=== PATIENT | female | born 1965 ===

== ENCOUNTER 2020-07-31 12:52 | Outpatient (REF) | payer SELFPAY ==
[2020-07-31 08:25] LABS: Hematocrit 28.8 % (37-47); Hemoglobin 8.3 g/dl (12.0-16.0); Mean Corpuscular HGB Conc 28.8 g/dl (31.0-35.0); Mean Corpuscular Hemoglobin 28.1 pg (27.0-33.0); Mean Corpuscular Volume 97.6 fL (80-98); Mean Platelet Volume 10.5 fL (9.4-12.3); Platelet Count 390 X10*3/uL (160-400); Red Blood Count 2.95 X10*6/uL (4.20-5.50); Red Cell Distribution Width 18.5 % (11.0-16.0); White Blood Count 8.4 X10*3/uL (4.8-10.8)
[2020-07-31 09:29] LABS: Anion Gap 25 (12-20); Blood Urea Nitrogen 31 mg/dL (9-16); Calcium 9.3 mg/dL (8.4-10.2); Carbon Dioxide 23 mmol/L (22-29); Chloride 97 mmol/L (96-108); Estimated Glomerular Filt Rate 7; Glucose Random 147 mg/dL (60-115); Potassium 4.8 mmol/L (3.3-5.1); Sodium 140 mmol/L (135-145)
== END 2020-07-31 12:53 | disposition home or self-care (01) ==
LOC: HO.MMNH1L 12:52
PROVIDERS: Visit Provider Family Medicine
DX: N18.6 End stage renal disease (principal); E11.9 Type 2 diabetes mellitus without complications; Z89.519 Acquired absence of unspecified leg below knee
CPT/HCPCS: 36415; 80048; 85027

== ENCOUNTER 2020-08-07 06:45 | Outpatient (REF) | payer SELFPAY ==
[2020-08-07 07:04] LABS: Hematocrit 31.2 % (37-47); Mean Corpuscular HGB Conc 28.8 g/dl (31.0-35.0); Mean Corpuscular Hemoglobin 28.5 pg (27.0-33.0); Mean Corpuscular Volume 98.7 fL (80-98); Mean Platelet Volume 11.3 fL (9.4-12.3); Platelet Count 364 X10*3/uL (160-400); Red Blood Count 3.16 X10*6/uL (4.20-5.50); Red Cell Distribution Width 18.3 % (11.0-16.0); White Blood Count 9.1 X10*3/uL (4.8-10.8)
== END 2020-08-07 06:46 | disposition home or self-care (01) ==
LOC: HO.MMNH1L 06:45
PROVIDERS: Visit Provider Family Medicine
DX: E11.22 Type 2 diabetes mellitus with diabetic chronic kidney disease (principal); N18.6 End stage renal disease; Z89.519 Acquired absence of unspecified leg below knee
CPT/HCPCS: 36415; 80048; 85027

== ENCOUNTER 2020-08-08 06:48 | Outpatient (REF) | payer SELFPAY ==
[2020-08-08 08:00] LABS: Anion Gap 28 (12-20); Blood Urea Nitrogen 43 mg/dL (9-16); Calcium 9.5 mg/dL (8.4-10.2); Carbon Dioxide 18 mmol/L (22-29); Chloride 98 mmol/L (96-108); Estimated Glomerular Filt Rate 7; Glucose Random 88 mg/dL (60-115); Potassium 4.8 mmol/L (3.3-5.1); Sodium 139 mmol/L (135-145)
== END 2020-08-08 06:49 | disposition home or self-care (01) ==
LOC: HO.MMNH1L 06:48
PROVIDERS: Visit Provider Family Medicine
DX: E11.22 Type 2 diabetes mellitus with diabetic chronic kidney disease (principal); N18.6 End stage renal disease; Z89.519 Acquired absence of unspecified leg below knee
CPT/HCPCS: 36415; 80048

== ENCOUNTER 2020-08-14 00:33 | Outpatient (REF) | payer SELFPAY ==
[2020-08-14 07:41] LABS: Hematocrit 28.4 % (37-47); Hemoglobin 8.4 g/dl (12.0-16.0); Mean Corpuscular HGB Conc 29.6 g/dl (31.0-35.0); Mean Corpuscular Hemoglobin 28.7 pg (27.0-33.0); Mean Corpuscular Volume 96.9 fL (80-98); Mean Platelet Volume 11.1 fL (9.4-12.3); Platelet Count 259 X10*3/uL (160-400); Red Blood Count 2.93 X10*6/uL (4.20-5.50); Red Cell Distribution Width 17.2 % (11.0-16.0); White Blood Count 7.2 X10*3/uL (4.8-10.8)
[2020-08-14 08:45] LABS: Anion Gap 18 (12-20); Blood Urea Nitrogen 38 mg/dL (9-16); Calcium 9.2 mg/dL (8.4-10.2); Carbon Dioxide 28 mmol/L (22-29); Chloride 99 mmol/L (96-108); Estimated Glomerular Filt Rate 8; Glucose Random 94 mg/dL (60-115); Potassium 4.9 mmol/L (3.3-5.1); Sodium 140 mmol/L (135-145)
== END 2020-08-14 00:34 | disposition home or self-care (01) ==
LOC: HO.MMNH1L 00:33
PROVIDERS: Visit Provider Family Medicine
DX: E11.22 Type 2 diabetes mellitus with diabetic chronic kidney disease (principal); N18.6 End stage renal disease; Z89.519 Acquired absence of unspecified leg below knee
CPT/HCPCS: 36415; 80048; 85027

== ENCOUNTER 2020-08-15 12:40 | Outpatient (REF) | payer OTHER, SELFPAY | END 2020-08-15 12:41 | disposition home or self-care (01) | LOC: HO.MMNH1L 12:40 | PROVIDERS: Visit Provider Family Medicine | DX: S81.801D Unspecified open wound, right lower leg, subsequent encounter (principal); X58.XXXD Exposure to other specified factors, subsequent encounter | CPT/HCPCS: 88305; 88312 ==

== ENCOUNTER 2020-08-21 10:37 | Outpatient (REF) | payer OTHER, SELFPAY ==
[2020-08-21 08:00] LABS: Hematocrit 27.5 % (37-47); Hemoglobin 8.1 g/dl (12.0-16.0); Mean Corpuscular HGB Conc 29.5 g/dl (31.0-35.0); Mean Corpuscular Hemoglobin 28.2 pg (27.0-33.0); Mean Corpuscular Volume 95.8 fL (80-98); Platelet Count 330 X10*3/uL (160-400); Red Blood Count 2.87 X10*6/uL (4.20-5.50); Red Cell Distribution Width 17.1 % (11.0-16.0); White Blood Count 7.8 X10*3/uL (4.8-10.8)
[2020-08-21 09:06] LABS: Anion Gap 24 (12-20); Blood Urea Nitrogen 29 mg/dL (9-16); Calcium 9.1 mg/dL (8.4-10.2); Carbon Dioxide 24 mmol/L (22-29); Chloride 98 mmol/L (96-108); Estimated Glomerular Filt Rate 8; Glucose Random 177 mg/dL (60-115); Potassium 4.9 mmol/L (3.3-5.1); Sodium 141 mmol/L (135-145)
== END 2020-08-21 10:38 | disposition home or self-care (01) ==
LOC: HO.MMNH1L 10:37
PROVIDERS: Visit Provider Family Medicine
DX: E11.22 Type 2 diabetes mellitus with diabetic chronic kidney disease (principal); N18.6 End stage renal disease; Z89.519 Acquired absence of unspecified leg below knee
CPT/HCPCS: 36415; 80048; 85027

== ENCOUNTER 2020-08-28 00:39 | Outpatient (REF) | payer OTHER, SELFPAY | END 2020-08-28 00:40 | disposition home or self-care (01) | LOC: HO.MMNH1L 00:39 | PROVIDERS: Visit Provider Family Medicine | DX: Z13.89 Encounter for screening for other disorder (principal) ==

== ENCOUNTER 2020-09-06 | Outpatient (REF) | payer OTHER, SELFPAY ==
[2020-09-06 10:35] LABS: Red Cell Distribution Width 17.2 % (11.0-16.0)
[2020-09-06 10:36] LABS: Hematocrit 31.5 % (37-47); Hemoglobin 9.4 g/dl (12.0-16.0); Mean Corpuscular HGB Conc 29.8 g/dl (31.0-35.0); Mean Corpuscular Hemoglobin 28.3 pg (27.0-33.0); Mean Corpuscular Volume 94.9 fL (80-98); PLT CLUMP 1; Red Blood Count 3.32 X10*6/uL (4.20-5.50)
[2020-09-06 10:38] LABS: PLT ABN DIST 1; White Blood Count 9.5 X10*3/uL (4.8-10.8)
[2020-09-06 10:58] LABS: Alanine Aminotransferase 14 U/L (0-31); Alkaline Phosphatase 88 U/L (39-117); Anion Gap 22 (12-20); Aspartate Amino Transferase 33 U/L (5-31); Bilirubin Total 0.5 mg/dL (0.0-1.0); Blood Urea Nitrogen 34 mg/dL (9-16); Calcium 9.4 mg/dL (8.4-10.2); Carbon Dioxide 22 mmol/L (22-29); Chloride 98 mmol/L (96-108); Estimated Glomerular Filt Rate 10; Glucose Random 161 mg/dL (60-115); Potassium 5.3 mmol/L (3.3-5.1); Sodium 137 mmol/L (135-145)
== END 2020-09-06 00:01 | disposition home or self-care (01) ==
LOC: HO.MMNH1L
PROVIDERS: Visit Provider Family Medicine
DX: E11.22 Type 2 diabetes mellitus with diabetic chronic kidney disease (principal); N18.9 Chronic kidney disease, unspecified
CPT/HCPCS: 36415; 80053; 85027

== ENCOUNTER 2020-09-12 00:31 | Outpatient (REF) | payer OTHER, SELFPAY | END 2020-09-12 00:32 | disposition home or self-care (01) | LOC: HO.MMNH1L 00:31 | PROVIDERS: Visit Provider Family Medicine | DX: Z13.89 Encounter for screening for other disorder (principal) ==

== ENCOUNTER 2020-09-15 08:44 | Outpatient (REF) | payer SELFPAY ==
[2020-09-15 09:15] LABS: Hematocrit 26.3 % (37-47); Hemoglobin 7.8 g/dl (12.0-16.0); Mean Corpuscular HGB Conc 29.7 g/dl (31.0-35.0); Mean Corpuscular Hemoglobin 28.3 pg (27.0-33.0); Mean Corpuscular Volume 95.3 fL (80-98); Mean Platelet Volume 11.6 fL (9.4-12.3); Platelet Count 279 X10*3/uL (160-400); Red Blood Count 2.76 X10*6/uL (4.20-5.50); Red Cell Distribution Width 17.7 % (11.0-16.0); White Blood Count 8.1 X10*3/uL (4.8-10.8)
[2020-09-15 09:52] LABS: Alanine Aminotransferase 9 U/L (0-31); Alkaline Phosphatase 72 U/L (39-117); Anion Gap 20 (12-20); Aspartate Amino Transferase 20 U/L (5-31); Bilirubin Total 0.5 mg/dL (0.0-1.0); Blood Urea Nitrogen 32 mg/dL (9-16); Calcium 8.8 mg/dL (8.4-10.2); Carbon Dioxide 23 mmol/L (22-29); Chloride 99 mmol/L (96-108); Estimated Glomerular Filt Rate 9; Glucose Random 194 mg/dL (60-115); Potassium 4.9 mmol/L (3.3-5.1); Sodium 137 mmol/L (135-145); Total Protein 5.8 g/dL (6.5-8.0)
== END 2020-09-15 08:45 | disposition home or self-care (01) ==
LOC: HO.MMNH1L 08:44
PROVIDERS: Visit Provider Family Medicine
DX: E11.9 Type 2 diabetes mellitus without complications (principal); Z99.2 Dependence on renal dialysis
CPT/HCPCS: 36415; 80053; 85027

== ENCOUNTER 2020-10-02 07:07 | Outpatient (REF) | payer SELFPAY ==
[2020-10-02 07:13] LABS: Hematocrit 22.1 % (37-47); Mean Corpuscular HGB Conc 29.9 g/dl (31.0-35.0); Mean Corpuscular Hemoglobin 27.7 pg (27.0-33.0); Mean Corpuscular Volume 92.9 fL (80-98); Mean Platelet Volume 11.7 fL (9.4-12.3); Platelet Count 177 X10*3/uL (160-400); Red Blood Count 2.38 X10*6/uL (4.20-5.50); Red Cell Distribution Width 16.6 % (11.0-16.0); White Blood Count 7.2 X10*3/uL (4.8-10.8)
[2020-10-02 07:58] LABS: Hemoglobin 6.6 g/dl (12.0-16.0)
[2020-10-02 08:05] LABS: Anion Gap 18 (12-20); Blood Urea Nitrogen 43 mg/dL (9-16); Calcium 8.4 mg/dL (8.4-10.2); Carbon Dioxide 26 mmol/L (22-29); Chloride 102 mmol/L (96-108); Estimated Glomerular Filt Rate 9; Glucose Random 147 mg/dL (60-115); Potassium 5.2 mmol/L (3.3-5.1); Sodium 141 mmol/L (135-145)
== END 2020-10-02 07:08 | disposition home or self-care (01) ==
LOC: HO.MMNH1L 07:07
PROVIDERS: Visit Provider Family Medicine
DX: E11.9 Type 2 diabetes mellitus without complications (principal); Z99.2 Dependence on renal dialysis
CPT/HCPCS: 36415; 80048; 85027

== ENCOUNTER 2020-10-09 00:34 | Outpatient (REF) | payer SELFPAY | END 2020-10-09 00:35 | disposition home or self-care (01) | LOC: HO.MMNH1L 00:34 | PROVIDERS: Visit Provider Family Medicine | DX: Z13.89 Encounter for screening for other disorder (principal) ==

== ENCOUNTER 2020-12-26 05:46 | Outpatient (REF) | payer SELFPAY ==
[2020-12-26 07:16] LABS: Anion Gap 19 (12-20); Blood Urea Nitrogen 54 mg/dL (9-16); Calcium 9.1 mg/dL (8.4-10.2); Carbon Dioxide 28 mmol/L (22-29); Chloride 101 mmol/L (96-108); Estimated Glomerular Filt Rate 5; Glucose Random 110 mg/dL (60-115); Sodium 142 mmol/L (135-145)
== END 2020-12-26 05:47 | disposition home or self-care (01) ==
LOC: HO.MMNH1L 05:46
PROVIDERS: Visit Provider Family Medicine
DX: N18.6 End stage renal disease (principal)
CPT/HCPCS: 36415; 80048

== ENCOUNTER 2021-01-23 | Outpatient (REF) | payer SELFPAY ==
[2021-01-23 06:38] LABS: Hematocrit 35.8 % (37-47); Hemoglobin 11.1 g/dl (12.0-16.0); Mean Corpuscular Hemoglobin 29.8 pg (27.0-33.0); Mean Platelet Volume 11.2 fL (9.4-12.3); Platelet Count 167 X10*3/uL (160-400); Red Blood Count 3.73 X10*6/uL (4.20-5.50); Red Cell Distribution Width 18.3 % (11.0-16.0); White Blood Count 8.3 X10*3/uL (4.8-10.8)
[2021-01-23 07:33] LABS: Alanine Aminotransferase 21 U/L (0-31); Albumin Level 3.9 g/dL (3.5-5.0); Alkaline Phosphatase 81 U/L (39-117); Anion Gap 22 (12-20); Aspartate Amino Transferase 30 U/L (5-31); Bilirubin Total 0.5 mg/dL (0.0-1.0); Blood Urea Nitrogen 75 mg/dL (9-16); Calcium 8.9 mg/dL (8.4-10.2); Carbon Dioxide 24 mmol/L (22-29); Chloride 97 mmol/L (96-108); Estimated Glomerular Filt Rate 4; Glucose Random 97 mg/dL (60-115); Potassium 6.8 mmol/L (3.3-5.1); Sodium 136 mmol/L (135-145); Total Protein 6.9 g/dL (6.5-8.0)
== END 2021-01-23 00:01 | disposition home or self-care (01) ==
LOC: HO.MMNH1L
PROVIDERS: Visit Provider Family Medicine
DX: T14.8XXD Other injury of unspecified body region, subsequent encounter (principal)
CPT/HCPCS: 36415; 80053; 85027

== ENCOUNTER 2021-01-29 00:20 | Outpatient (REF) | payer SELFPAY | END 2021-01-29 00:21 | disposition home or self-care (01) | LOC: HO.MMNH1L 00:20 | PROVIDERS: Visit Provider Family Medicine | DX: Z13.89 Encounter for screening for other disorder (principal) ==